=== PATIENT | male | born 1970 | race Asian ===

== ENCOUNTER 2017-06-14 13:10 | Outpatient (CLI) | payer BC | END 2017-06-14 19:17 | disposition home or self-care (01) | LOC: LAB 13:10 | DX: R07.89 Other chest pain (principal) | CPT/HCPCS: 82550; 84484 ==

== ENCOUNTER 2017-06-14 16:49 | Observation (INO) | payer BC ==
[~2017-06-14] VITALS: Ht 172.7 cm; Wt 112.3 kg
--- NOTE | 2017-06-14 17:00 | NUR ---
PT TO ROOM 1106 AMBULATORY REQUESTED. PT REFUSED WHEELCHAIR. PT STATED HE WAS GOING TO VISIT WITH FAMILY IN WAITING ROOM AND THEN GO TO HIS ROOM. NAD NOTED. 1730-PT BACK TO ROOM AND ASSESSMENT COMPLETE. IV STARTED TO L FA WITH 20G ANGIOCATH X 1 ATTEMPT. PT TOLERATED WELL. LABS DRAWN. 1800- PT TO XRAY AT THIS TIME. 1825- PT BACK FROM XRAY. TELE ON AT THIS TIME. PT DENIES PAIN AT THIS TIME.
[2017-06-14 18:15] LABS: PLATELET COUNT 208 K/uL (142-355)
[2017-06-14 18:18] VITALS: BP 141/104; TEMP 97.8; Ht 172.7 cm; Wt 112.3 kg
[2017-06-14 18:53] LABS: POTASSIUM 3.8 mmol/L (3.6-5.2); SODIUM 139 mmol/L (136-145)
[2017-06-14 18:56] LABS: PARTIAL THROMBOPLASTIN TIME 26.7 SECONDS (24.5-33.6)
[2017-06-14 20:00] VITALS: BP 112/62; TEMP 98.2
[2017-06-15] VITALS: BP 140/82; TEMP 97.7
[2017-06-15 04:00] VITALS: BP 136/89; TEMP 97.7
[2017-06-15 05:19] LABS: PLATELET COUNT 202 K/uL (142-355)
[2017-06-15 05:22] LABS: POTASSIUM 3.5 mmol/L (3.6-5.2); SODIUM 139 mmol/L (136-145)
[2017-06-15 08:00] VITALS: BP 125/90; TEMP 98.4
--- NOTE | 2017-06-15 10:08 | NUR ---
NOTIFIED DR PRATHER OF CRITICAL LAB CPK [phone]. PREVIOUS GIVEN ORDERS TO D/C HOME. MD AWARE LAB VALUE TRENDING DOWN.
== END 2017-06-15 13:08 | disposition home or self-care (01) ==
LOC: MED/SURG 16:49
PROVIDERS: ADMIT Family Medicine
DX: R07.89 Other chest pain (principal); I51.7 Cardiomegaly
CPT/HCPCS: 36415; 80053; 82550; 82553; 83735; 83880; 84100; 84484; 85027; 85610; 85730; 93005; 96365; 96366; 99220; G0378; G0379; J1885

== ENCOUNTER 2017-06-21 14:23 | Outpatient (CLI) | payer BC ==
[2017-06-21 15:52] LABS: PLATELET COUNT 237 K/uL (142-355)
[2017-06-21 16:18] LABS: POTASSIUM 3.5 mmol/L (3.6-5.2)
== END 2017-06-21 20:13 | disposition home or self-care (01) ==
LOC: RAD 14:23 → INF 14:23
PROVIDERS: Family Medicine
DX: M25.512 Pain in left shoulder (principal); M62.82 Rhabdomyolysis
CPT/HCPCS: 36415; 36591; 80053; 82550; 82553; 83880; 84484; 85027; 96360; 96361